=== PATIENT | female | born 1965 | race Hispanic/Latino ===

== ENCOUNTER 2022-01-09 03:18 | Observation (INO) | payer OTHER ==
[2022-01-09] VITALS (7 sets, daily range): BP systolic 130–170; BP diastolic 69–83
[~2022-01-09] VITALS: Ht 160 cm; Wt 99.8 kg
[2022-01-09 03:42] LABS: BASOPHILS # (AUTO) 0.1 (0.0-0.1); BASOPHILS % 0.6 % (0.0-1.0); EOSINOPHILS # (AUTO) 0.3 (0.0-0.4); EOSINOPHILS % 3.4 % (0.0-6.0); HEMATOCRIT 34.6 % (34.2-44.1); HEMOGLOBIN 10.7 g/dL (12.0-16.0); LYMPHOCYTES # (AUTO) 2.3 (1.0-3.2); LYMPHOCYTES % 28.4 % (18.0-39.1); MEAN CORPUSCULAR HEMOGLOBIN 27.1 pg (28-32); MEAN CORPUSCULAR HGB CONC 30.9 g/dL (31-35); MEAN CORPUSCULAR VOLUME 87.6 fL (81-99); MONOCYTES # (AUTO) 0.5 (0.2-0.8); MONOCYTES % 6.6 % (4.4-11.3); NEUTROPHILS # (AUTO) 4.9 (2.1-6.9); NEUTROPHILS % 60.5 % (38.7-80.0); PLATELET COUNT 357 x10e3/uL (140-360); RED BLOOD COUNT 3.95 x10e6/uL (3.6-5.1); RED CELL DISTRIBUTION WIDTH 13.7 % (11.7-14.4)
[2022-01-09 04:03] LABS: ALBUMIN 2.3 g/dL (3.5-5.0); ALBUMIN/GLOBULIN RATIO 0.5 (0.8-2.0); ANION GAP 12.7 mmol/L (8-16); CALCIUM 8.1 mg/dL (8.4-10.2); CREATININE, SERUM 2.67 mg/dL (0.57-1.11)
[2022-01-09 04:04] LABS: POTASSIUM 5.7 mmol/L (3.5-5.1)
[2022-01-09 04:09] LABS: CREATINE KINASE MB 1.6 ng/mL (0-5.0)
[2022-01-09] MEDS ORDERED: DEXTROSE 50% SYRINGE 50 ML IV STA (04:13)
[2022-01-09] MEDS ORDERED: CALCIUM GLUCONATE 10% INJ 0.465 MEQ/ML VIAL IV STA (04:13)
[2022-01-09] MEDS ORDERED: FUROSEMIDE INJ 10 MG/ML 4 ML VIAL IV STA (04:13)
[2022-01-09] MEDS ORDERED: INSULIN REGULAR, HUMAN 100 UNIT/1 ML IV STA (04:13)
[2022-01-09] MEDS ORDERED: SODIUM BICARBONATE 8.4% INJ 50 ML SYR IV STA (04:13)
[2022-01-09] MEDS ORDERED: SODIUM CHLORIDE FLUSH 10 ML SYR INJ PRN (04:15)
[2022-01-09] MEDS ORDERED: CALCIUM GLUC 1 G/50 ML NACL 50 ML IV STA (04:22)
[2022-01-09] MEDS ORDERED: ATORVASTATIN CA20 MG PO (06:07)
[2022-01-09] MEDS ORDERED: NIFEDIPINE ER30 M1 PO (06:08)
[2022-01-09] MEDS ORDERED: CARVEDILOL12.5 MG PO (06:09)
[2022-01-09] MEDS ORDERED: LISINOPRIL5 MG PO (06:09)
[2022-01-09] MEDS ORDERED: JANUVIA25 MG PO (06:10)
[2022-01-09 10:46] LABS: CREATINE KINASE 354 IU/L (29-168)
[2022-01-09] MEDS ORDERED: LACTULOSE SYRUP 20 GM/30 ML UDC PO ONE (11:15)
[2022-01-09] MEDS ORDERED: SOD POLYSTYRENE SULFONATE SUSP 15 GM/60 ML BTL PO ONE (11:15)
[2022-01-09] MEDS: SODIUM BICARBONATE 650 MG TAB PO SCH ×2 (15:06→21:30)
[2022-01-09 18:38] LABS: CREATINE KINASE 381 IU/L (29-168)
[2022-01-09] MEDS ORDERED: LEVEMIR FL100 UNIT/1 SC (21:50)
[2022-01-09] MEDS ORDERED: DEXTROSE 50% SYRINGE 50 ML IV PRN (22:00)
[2022-01-09] MEDS ORDERED: ACETAMINOPHEN 325 MG TAB PO PRN (22:00)
[2022-01-09] MEDS ORDERED: ATORVASTATIN 40 MG TAB PO SCH (22:00)
[2022-01-09] MEDS: LISINOPRIL 2.5 MG TAB PO SCH (23:05)
[2022-01-09] MEDS: CARVEDILOL 12.5 MG TAB PO SCH (23:05)
[2022-01-09] MEDS: NIFEDIPINE CR 30 MG TAB PO SCH (23:05)
[2022-01-09] MEDS: INSULIN REGULAR, HUMAN 100 UNIT/1 ML SQ SCH (23:06)
[2022-01-10] VITALS: BP 144/86
[2022-01-10 04:00] VITALS: BP 126/80
[2022-01-10 05:28] VITALS: BP 126/80
[2022-01-10 05:41] LABS: BASOPHILS # (AUTO) 0.1 (0.0-0.1); BASOPHILS % 0.8 % (0.0-1.0); EOSINOPHILS # (AUTO) 0.2 (0.0-0.4); EOSINOPHILS % 3.5 % (0.0-6.0); HEMATOCRIT 31.4 % (34.2-44.1); HEMOGLOBIN 9.6 g/dL (12.0-16.0); LYMPHOCYTES # (AUTO) 1.9 (1.0-3.2); LYMPHOCYTES % 31.6 % (18.0-39.1); MEAN CORPUSCULAR HEMOGLOBIN 26.8 pg (28-32); MEAN CORPUSCULAR HGB CONC 30.6 g/dL (31-35); MEAN CORPUSCULAR VOLUME 87.7 fL (81-99); MONOCYTES # (AUTO) 0.5 (0.2-0.8); MONOCYTES % 7.9 % (4.4-11.3); NEUTROPHILS # (AUTO) 3.3 (2.1-6.9); PLATELET COUNT 305 x10e3/uL (140-360); RED BLOOD COUNT 3.58 x10e6/uL (3.6-5.1); RED CELL DISTRIBUTION WIDTH 13.8 % (11.7-14.4)
[2022-01-10 07:08] LABS: ALBUMIN/GLOBULIN RATIO 0.6 (0.8-2.0); ANION GAP 13.1 mmol/L (8-16); CALCIUM 7.7 mg/dL (8.4-10.2); CREATININE, SERUM 2.29 mg/dL (0.57-1.11); POTASSIUM 5.1 mmol/L (3.5-5.1)
[2022-01-10] MEDS: INSULIN REGULAR, HUMAN 100 UNIT/1 ML SQ SCH ×2 (07:30→11:30)
[2022-01-10 08:00] VITALS: BP 151/77
[2022-01-10 08:14] VITALS: BP 151/77
[2022-01-10] MEDS: LISINOPRIL 2.5 MG TAB PO SCH (08:47)
[2022-01-10] MEDS: CARVEDILOL 12.5 MG TAB PO SCH (08:47)
[2022-01-10] MEDS: SODIUM BICARBONATE 650 MG TAB PO SCH ×2 (08:48→15:00)
[2022-01-10] MEDS: NIFEDIPINE CR 30 MG TAB PO SCH (08:48)
[2022-01-10] MEDS ORDERED: NON-FORMULARY MEDICATION (Sitagliptin Phosphate* (Januvia*) 25 MG) PO SCH (09:00)
[2022-01-10] MEDS ORDERED: FUROSEMIDE INJ 10 MG/ML 4 ML VIAL IV SCH (09:00)
[2022-01-10] MEDS ORDERED: SOD POLYSTYRENE SULFONATE SUSP 15 GM/60 ML BTL PO ONE (11:15)
[2022-01-10 12:46] VITALS: BP 107/71
[2022-01-10] MEDS ORDERED: SODIUM BICARBO650 MG PO (14:39)
[2022-01-10] MEDS ORDERED: INSULIN GLARGINE 100 UNITS/ML VIAL SC SCH (21:00)
== END 2022-01-10 15:50 | disposition home or self-care (01) ==
LOC: ER 03:22 → INTOOBSV 04:11 → ERHOLD 04:11 → MED/SURG2 05:23
DX: I13.0 Hypertensive heart and chronic kidney disease with heart failure and stage 1 through stage 4 chronic kidney disease, or unspecified chronic kidney disease (principal); I50.33 Acute on chronic diastolic (congestive) heart failure; E87.5 Hyperkalemia; E11.22 Type 2 diabetes mellitus with diabetic chronic kidney disease; N18.4 Chronic kidney disease, stage 4 (severe); E66.01 Morbid (severe) obesity due to excess calories; Z68.39 Body mass index [BMI] 39.0-39.9, adult; I25.10 Atherosclerotic heart disease of native coronary artery without angina pectoris; E87.2 Acidosis; N17.9 Acute kidney failure, unspecified; N25.89 Other disorders resulting from impaired renal tubular function; E78.5 Hyperlipidemia, unspecified
CPT/HCPCS: 36415; 71045; 71046; 76770; 80053; 82550; 82553; 82948; 83880; 84484; 84550; 85025; 85379; 93005; 93306; 94799; 99284; G0378; J1817; J1940; J7799; U0002

== ENCOUNTER 2022-02-23 13:14 | Inpatient (IN) | payer OTHER ==
[~2022-02-23] VITALS: Ht 157.5 cm; Wt 99.8 kg
[~2022-02-23 13:14] MED LIST: ATORVASTATIN CA20 MG PO; CARVEDILOL12.5 MG PO; JANUVIA25 MG PO; LEVEMIR FL100 UNIT/1 SC; LISINOPRIL5 MG PO; NIFEDIPINE ER30 M1 PO; SODIUM BICARBO650 MG PO
[2022-02-23 13:55] LABS: BASOPHILS # (AUTO) 0.1 (0.0-0.1); BASOPHILS % 0.7 % (0.0-1.0); EOSINOPHILS # (AUTO) 0.1 (0.0-0.4); HEMATOCRIT 35.4 % (34.2-44.1); HEMOGLOBIN 11.7 g/dL (12.0-16.0); LYMPHOCYTES # (AUTO) 0.9 (1.0-3.2); MEAN CORPUSCULAR HEMOGLOBIN 26.7 pg (28-32); MEAN CORPUSCULAR HGB CONC 33.1 g/dL (31-35); MEAN CORPUSCULAR VOLUME 80.8 fL (81-99); MONOCYTES # (AUTO) 0.4 (0.2-0.8); MONOCYTES % 4.1 % (4.4-11.3); NEUTROPHILS # (AUTO) 8.9 (2.1-6.9); NEUTROPHILS % 84.5 % (38.7-80.0); PLATELET COUNT 335 x10e3/uL (140-360); RED BLOOD COUNT 4.38 x10e6/uL (3.6-5.1); RED CELL DISTRIBUTION WIDTH 13.1 % (11.7-14.4)
[2022-02-23 14:11] LABS: ALBUMIN 2.5 g/dL (3.5-5.0); ALBUMIN/GLOBULIN RATIO 0.5 (0.8-2.0); ANION GAP 18.6 mmol/L (8-16); CALCIUM 8.1 mg/dL (8.4-10.2); CREATININE, SERUM 3.22 mg/dL (0.57-1.11); POTASSIUM 5.6 mmol/L (3.5-5.1)
[2022-02-23] MEDS ORDERED: DEXTROSE 50% SYRINGE 50 ML IV STA (14:54)
[2022-02-23] MEDS ORDERED: SOD POLYSTYRENE SULFONATE SUSP 15 GM/60 ML BTL PO ONE (15:00)
[2022-02-23] MEDS ORDERED: INSULIN REGULAR, HUMAN 100 UNIT/1 ML IV ONE (15:00)
[2022-02-23] MEDS ORDERED: CALCIUM GLUCONATE 10% INJ 13.95 MEQ in SODIUM CHLORIDE 0.9% 100 ML IV ONE (15:00)
[2022-02-23] MEDS ORDERED: SODIUM BICARBONATE 8.4% INJ 50 ML SYR IV ONE (15:00)
[2022-02-23] MEDS ORDERED: ALBUTEROL SULF 0.083% NEB SOLN 3 ML NEB NEB ONE (15:05)
[2022-02-23] MEDS ORDERED: ONDANSETRON HCL INJ 2MG/ML 2ML 2 MG/ML VIAL IV NR (15:30)
[2022-02-23] MEDS ORDERED: DEXTROSE 5% 1,000 ML IV ONE (15:30)
[2022-02-23] MEDS: SODIUM CHLORIDE 0.9% 1000ML 1,000 ML IV SCH ×2 (15:35→23:00)
[2022-02-23] MEDS ORDERED: SODIUM CHLORIDE 0.9% 100 ML ONE (15:41)
[2022-02-23] MEDS ORDERED: SODIUM BICARBONATE 8.4% 150 ML in DEXTROSE 5% 1,000 ML IV ONE (15:45)
[2022-02-23 16:24] VITALS: BP 159/84
[2022-02-23 16:30] VITALS: BP 159/84
[2022-02-23] MEDS ORDERED: DEXTROSE 50% SYRINGE 50 ML IV PRN (16:45)
[2022-02-23] MEDS: INSULIN LISPRO 100 UNIT/1 ML 3ML VIAL SQ SCH (20:13)
[2022-02-23] MEDS: ACETAMINOPHEN 325 MG TAB PO PRN (20:14)
[2022-02-23 20:35] VITALS: BP 156/84
[2022-02-23 20:39] VITALS: BP 156/84
[2022-02-24] VITALS (7 sets, daily range): BP systolic 147–182; BP diastolic 70–86
[2022-02-24] MEDS: SODIUM CHLORIDE 0.9% 1000ML 1,000 ML IV SCH ×3 (05:18→15:00)
[2022-02-24 05:41] LABS: BASOPHILS % 0.7 % (0.0-1.0); EOSINOPHILS % 0.7 % (0.0-6.0); HEMATOCRIT 30.4 % (34.2-44.1); LYMPHOCYTES # (AUTO) 1.7 (1.0-3.2); LYMPHOCYTES % 39.4 % (18.0-39.1); MEAN CORPUSCULAR HEMOGLOBIN 26.8 pg (28-32); MEAN CORPUSCULAR HGB CONC 32.9 g/dL (31-35); MEAN CORPUSCULAR VOLUME 81.5 fL (81-99); MONOCYTES # (AUTO) 0.4 (0.2-0.8); MONOCYTES % 10.1 % (4.4-11.3); NEUTROPHILS # (AUTO) 2.1 (2.1-6.9); NEUTROPHILS % 48.6 % (38.7-80.0); PLATELET COUNT 281 x10e3/uL (140-360); RED BLOOD COUNT 3.73 x10e6/uL (3.6-5.1); RED CELL DISTRIBUTION WIDTH 13.2 % (11.7-14.4)
[2022-02-24 06:03] LABS: ANION GAP 14.6 mmol/L (8-16); CALCIUM 7.7 mg/dL (8.4-10.2); CREATININE, SERUM 2.68 mg/dL (0.57-1.11); POTASSIUM 3.6 mmol/L (3.5-5.1)
[2022-02-24] MEDS: INSULIN LISPRO 100 UNIT/1 ML 3ML VIAL SQ SCH ×4 (07:30→20:19)
[2022-02-24] MEDS: PANTOPRAZOLE SOD 40 MG TABEC PO SCH (08:42)
[2022-02-24] MEDS: ACETAMINOPHEN 325 MG TAB PO PRN (20:39)
[2022-02-24] MEDS: ONDANSETRON HCL INJ 2MG/ML 2ML 2 MG/ML VIAL IV PRN (22:59)
[2022-02-25] VITALS (9 sets, daily range): BP systolic 131–190; BP diastolic 69–95
[2022-02-25] MEDS: SODIUM CHLORIDE 0.9% 1000ML 1,000 ML IV SCH (03:10)
[2022-02-25] MEDS: ACETAMINOPHEN 325 MG TAB PO PRN (06:01)
[2022-02-25 07:02] LABS: BASOPHILS % 0.4 % (0.0-1.0); EOSINOPHILS # (AUTO) 0.2 (0.0-0.4); EOSINOPHILS % 2.2 % (0.0-6.0); HEMATOCRIT 31.7 % (34.2-44.1); HEMOGLOBIN 10.3 g/dL (12.0-16.0); LYMPHOCYTES # (AUTO) 1.9 (1.0-3.2); LYMPHOCYTES % 27.6 % (18.0-39.1); MEAN CORPUSCULAR HEMOGLOBIN 26.8 pg (28-32); MEAN CORPUSCULAR HGB CONC 32.5 g/dL (31-35); MEAN CORPUSCULAR VOLUME 82.6 fL (81-99); MONOCYTES # (AUTO) 0.8 (0.2-0.8); MONOCYTES % 11.7 % (4.4-11.3); NEUTROPHILS # (AUTO) 3.9 (2.1-6.9); NEUTROPHILS % 57.8 % (38.7-80.0); PLATELET COUNT 297 x10e3/uL (140-360); RED BLOOD COUNT 3.84 x10e6/uL (3.6-5.1); RED CELL DISTRIBUTION WIDTH 13.2 % (11.7-14.4)
[2022-02-25 07:11] LABS: ANION GAP 13.9 mmol/L (8-16); CALCIUM 8.2 mg/dL (8.4-10.2); CREATININE, SERUM 2.45 mg/dL (0.57-1.11); POTASSIUM 3.9 mmol/L (3.5-5.1)
[2022-02-25] MEDS: PANTOPRAZOLE SOD 40 MG TABEC PO SCH (08:22)
[2022-02-25] MEDS: NIFEDIPINE CR 30 MG TAB PO SCH (08:26)
[2022-02-25] MEDS: INSULIN LISPRO 100 UNIT/1 ML 3ML VIAL SQ SCH ×4 (08:28→20:56)
[2022-02-25] MEDS: CARVEDILOL 12.5 MG TAB PO SCH ×2 (11:02→16:37)
[2022-02-25] MEDS: TRAMADOL HCL 50 MG TAB PO PRN (13:39)
[2022-02-25] MEDS ORDERED: CARVEDILOL 12.5 MG TAB PO SCH (17:00)
[2022-02-25] MEDS: ONDANSETRON HCL INJ 2MG/ML 2ML 2 MG/ML VIAL IV PRN (17:30)
[2022-02-25] MEDS: ATORVASTATIN 40 MG TAB PO SCH (20:52)
[2022-02-26] VITALS (10 sets, daily range): BP systolic 129–182; BP diastolic 66–86
[2022-02-26 07:21] LABS: BASOPHILS % 0.4 % (0.0-1.0); EOSINOPHILS # (AUTO) 0.2 (0.0-0.4); EOSINOPHILS % 2.4 % (0.0-6.0); HEMATOCRIT 31.6 % (34.2-44.1); HEMOGLOBIN 10.1 g/dL (12.0-16.0); LYMPHOCYTES # (AUTO) 2.1 (1.0-3.2); LYMPHOCYTES % 31.5 % (18.0-39.1); MEAN CORPUSCULAR HEMOGLOBIN 26.8 pg (28-32); MEAN CORPUSCULAR VOLUME 83.8 fL (81-99); MONOCYTES # (AUTO) 0.7 (0.2-0.8); NEUTROPHILS # (AUTO) 3.7 (2.1-6.9); NEUTROPHILS % 55.4 % (38.7-80.0); PLATELET COUNT 290 x10e3/uL (140-360); RED BLOOD COUNT 3.77 x10e6/uL (3.6-5.1); RED CELL DISTRIBUTION WIDTH 13.1 % (11.7-14.4)
[2022-02-26 07:55] LABS: ALBUMIN 1.9 g/dL (3.5-5.0); ALBUMIN/GLOBULIN RATIO 0.5 (0.8-2.0); ANION GAP 12.5 mmol/L (8-16); CALCIUM 7.4 mg/dL (8.4-10.2); CREATININE, SERUM 3.16 mg/dL (0.57-1.11); POTASSIUM 4.5 mmol/L (3.5-5.1)
[2022-02-26] MEDS: PANTOPRAZOLE SOD 40 MG TABEC PO SCH (08:19)
[2022-02-26] MEDS: CARVEDILOL 12.5 MG TAB PO SCH ×2 (08:20→16:25)
[2022-02-26] MEDS: INSULIN LISPRO 100 UNIT/1 ML 3ML VIAL SQ SCH ×4 (08:20→21:06)
[2022-02-26] MEDS: FUROSEMIDE 40 MG TAB PO SCH (08:20)
[2022-02-26] MEDS: NIFEDIPINE CR 30 MG TAB PO SCH (08:21)
[2022-02-26 09:43] LABS: CREATININE,URINE RANDOM 77.48 mg/dL (47-110)
[2022-02-26] MEDS: HYDRALAZINE HCL 20 MG/ML VIAL IV PRN (12:04)
[2022-02-26] MEDS ORDERED: DEXTROSE 50% SYRINGE 50 ML IV PRN (15:45)
[2022-02-26] MEDS: ATORVASTATIN 40 MG TAB PO SCH (20:56)
[2022-02-26] MEDS: ACETAMINOPHEN 325 MG TAB PO PRN (21:07)
[2022-02-27] VITALS (8 sets, daily range): BP systolic 129–176; BP diastolic 16–87
[2022-02-27] MEDS: CARVEDILOL 12.5 MG TAB PO SCH ×2 (09:00→17:18)
[2022-02-27] MEDS: PANTOPRAZOLE SOD 40 MG TABEC PO SCH (09:01)
[2022-02-27] MEDS: NIFEDIPINE CR 30 MG TAB PO SCH (09:01)
[2022-02-27] MEDS: FUROSEMIDE 40 MG TAB PO SCH (09:01)
[2022-02-27] MEDS: TRAMADOL HCL 50 MG TAB PO PRN ×2 (09:03→11:30)
[2022-02-27] MEDS: HYDRALAZINE HCL 20 MG/ML VIAL IV PRN (09:05)
[2022-02-27] MEDS: INSULIN LISPRO 100 UNIT/1 ML 3ML VIAL SQ SCH ×4 (09:17→20:23)
[2022-02-27] MEDS: INSULIN GLARGINE 100 UNITS/ML VIAL SQ SCH (09:20)
[2022-02-27] MEDS: SODIUM CHLORIDE 0.9% 1000ML 1,000 ML IV SCH ×2 (12:19→20:01)
[2022-02-27] MEDS: ATORVASTATIN 40 MG TAB PO SCH (20:18)
[2022-02-28] MEDS: ACETAMINOPHEN 325 MG TAB PO PRN (01:29)
[2022-02-28 04:00] VITALS: BP 173/72
[2022-02-28] MEDS: SODIUM CHLORIDE 0.9% 1000ML 1,000 ML IV SCH (05:30)
[2022-02-28 07:12] LABS: ALBUMIN 1.9 g/dL (3.5-5.0); ALBUMIN/GLOBULIN RATIO 0.5 (0.8-2.0); ANION GAP 11.2 mmol/L (8-16); CALCIUM 7.6 mg/dL (8.4-10.2); CREATININE, SERUM 3.1 mg/dL (0.57-1.11); POTASSIUM 4.2 mmol/L (3.5-5.1)
[2022-02-28 08:11] VITALS: BP 187/86
[2022-02-28] MEDS: PANTOPRAZOLE SOD 40 MG TABEC PO SCH (08:17)
[2022-02-28] MEDS: HYDRALAZINE HCL 20 MG/ML VIAL IV PRN (08:18)
[2022-02-28 08:38] VITALS: BP 187/90
[2022-02-28] MEDS: INSULIN LISPRO 100 UNIT/1 ML 3ML VIAL SQ SCH ×2 (09:46→13:00)
[2022-02-28] MEDS: NIFEDIPINE CR 30 MG TAB PO SCH (09:47)
[2022-02-28] MEDS: CARVEDILOL 12.5 MG TAB PO SCH (09:48)
[2022-02-28] MEDS: FUROSEMIDE 40 MG TAB PO SCH (09:49)
[2022-02-28] MEDS: INSULIN GLARGINE 100 UNITS/ML VIAL SQ SCH (11:15)
[2022-02-28 11:48] VITALS: BP 150/74
[2022-02-28] MEDS ORDERED: SODIUM CHLORIDE 0.45% 1,000 ML IV SCH (12:30)
[2022-02-28] MEDS ORDERED: LEVEMIR FL100 UNIT/1 SC (12:30)
[2022-02-28] MEDS ORDERED: NIFEDIPINE CR 30 MG TAB PO ONE (12:30)
[2022-02-28] MEDS ORDERED: NIFEDIPINE CR 30 MG TAB PO SCH (17:00)
== END 2022-02-28 14:15 | disposition home or self-care (01) | DRG 641 ==
LOC: ER 13:22 → ERHOLD 15:00 → MED/SURG3 16:01
PROVIDERS: ADMIT Internal Medicine; ATTEND Internal Medicine
DX: E87.5 Hyperkalemia (principal); N17.9 Acute kidney failure, unspecified; E11.22 Type 2 diabetes mellitus with diabetic chronic kidney disease; I12.9 Hypertensive chronic kidney disease with stage 1 through stage 4 chronic kidney disease, or unspecified chronic kidney disease; Z79.899 Other long term (current) drug therapy; E78.49 Other hyperlipidemia; R60.0 Localized edema; N18.32 Chronic kidney disease, stage 3b; Z20.822 Contact with and (suspected) exposure to COVID-19
CPT/HCPCS: 36415; 70450; 76770; 80048; 80053; 82570; 82948; 83516; 83690; 84156; 84165; 85025; 86021; 86160; 86225; 86235; 86255; 86256; 86376; 86431; 93005; 94640; 94799; 99284; J0360; J0610; J1815; J1817; J2405; J7030; J7050; J7070; J7799

== ENCOUNTER 2022-03-26 16:41 | Emergency (ER) | payer OTHER ==
[~2022-03-26] VITALS: Ht 157.5 cm; Wt 99.8 kg
[2022-03-26] MEDS ORDERED: CLEOCIN HCL300 MG PO (17:28)
[2022-03-26] MEDS ORDERED: MUPIROCIN22 GM TOP (17:31)
== END 2022-03-26 17:36 | disposition home or self-care (01) ==
LOC: ER 17:15
DX: L03.312 Cellulitis of back [any part except buttock and flank] (principal); L03.116 Cellulitis of left lower limb; L03.115 Cellulitis of right lower limb; I10 Essential (primary) hypertension; E11.9 Type 2 diabetes mellitus without complications; E78.5 Hyperlipidemia, unspecified
CPT/HCPCS: 99282

== ENCOUNTER 2024-08-07 14:04 | Emergency (ER) | payer OTHER ==
[~2024-08-07] VITALS: Ht 157.5 cm; Wt 92.1 kg
[~2024-08-07 14:04] MED LIST changes: +BUMETANIDE1 MG PO; +CLEOCIN HCL300 MG PO; +COREG12.5 MG PO; +FEROSUL325 MG PO; +FUROSEMIDE40 MG PO; +LOSARTAN POTASS25 MG PO; +MECLIZINE HCL12.5 MG PO; +MUPIROCIN22 GM TOP; +RENVELA0.8 GM PO; +RENVELA800 MG PO; +SEVELAMER CARB800 MG PO; +VELTASSA16.8 GM PO
[2024-08-07 14:11] VITALS: PULSE 74; RESP 18; TEMP 98.4; O2SAT 99
[2024-08-07] MEDS ORDERED: DOXYCYCLINE HY100 MG PO (14:51)
== END 2024-08-07 15:07 | disposition home or self-care (01) ==
LOC: ER 14:18
DX: D22.39 Melanocytic nevi of other parts of face (principal); I12.9 Hypertensive chronic kidney disease with stage 1 through stage 4 chronic kidney disease, or unspecified chronic kidney disease; N18.9 Chronic kidney disease, unspecified; Z99.2 Dependence on renal dialysis
CPT/HCPCS: 99283

== ENCOUNTER → 2024-09-03 | Day surgery (SDC) | payer OTHER ==
[~2024-09-03] MED LIST changes: +ACETAMINOPHEN 1000 MG/100 ML 100 ML IV ONE; +DOXYCYCLINE HY100 MG PO; +FENTANYL CITRATE/PF 100MCG/2 ML INJ ONE; +LIDOCAINE HCL 2% LOCAL INJ 5 ML SDV VIAL INJ ONE; +MIDAZOLAM HCL 2 MG/2 ML VIAL ONE; +ONDANSETRON HCL 4 MG ORAL DISINTEGRATING TAB ONE; +ONDANSETRON HCL INJ 2MG/ML 2ML 2 MG/ML VIAL ONE; +OZEMPIC0.25 MG/02 SC; +PROPOFOL IV EMULSION 10 MG/ML 20 ML VIAL ONE
[2024-09-03] MEDS: SODIUM CHLORIDE 0.9% 500ML 500 ML ONE (09:05)
[2024-09-03 09:27] LABS: BASOPHILS # (AUTO) 0.1 (0.0-0.1); BASOPHILS % 0.9 % (0.0-1.0); EOSINOPHILS # (AUTO) 0.2 (0.0-0.4); EOSINOPHILS % 2.1 % (0.0-6.0); HEMATOCRIT 37.6 % (34.2-44.1); HEMOGLOBIN 12.2 g/dL (12.0-16.0); LYMPHOCYTES # (AUTO) 1.8 (1.0-3.2); LYMPHOCYTES % 23.1 % (18.0-39.1); MEAN CORPUSCULAR HEMOGLOBIN 28.2 pg (28-32); MEAN CORPUSCULAR HGB CONC 32.4 g/dL (31-35); MEAN CORPUSCULAR VOLUME 86.8 fL (81-99); MONOCYTES # (AUTO) 0.6 (0.2-0.8); MONOCYTES % 7.6 % (4.4-11.3); NEUTROPHILS # (AUTO) 5.2 (2.1-6.9); NEUTROPHILS % 65.8 % (38.7-80.0); PLATELET COUNT 211 x10e3/uL (140-360); RED BLOOD COUNT 4.33 x10e6/uL (3.6-5.1); RED CELL DISTRIBUTION WIDTH 14.6 % (11.7-14.4); WHITE BLOOD COUNT 7.92 x10e3/uL (4.8-10.8)
[2024-09-03 10:19] LABS: INR 0.98; PROTHROMBIN TIME 13.6 seconds (11.9-14.5)
[2024-09-03 11:03] LABS: ALBUMIN 2.4 g/dL (3.5-5.0); ALBUMIN/GLOBULIN RATIO 0.6 (0.8-2.0); ANION GAP 17.9 mmol/L (8-16); BILIRUBIN,TOTAL 0.4 mg/dL (0.2-1.2); CALCIUM 8.3 mg/dL (8.4-10.2); CREATININE, SERUM 10.47 mg/dL (0.57-1.11); POTASSIUM 4.9 mmol/L (3.5-5.1); TOTAL PROTEIN 6.1 g/dL (6.5-8.1)
[2024-09-03 13:10] VITALS: TEMP 98.8
[2024-09-03] MEDS: HYDROCODONE/APAP 7.5MG-325MG 1 EA TAB ONE (14:00)
[2024-09-03] MEDS: ONDANSETRON HCL 4 MG ORAL DISINTEGRATING TAB PO ONE (14:25)
[2024-09-03 14:35] VITALS: BP 165/85; PULSE 65; RESP 16; O2SAT 94
== END | disposition home or self-care (01) ==
LOC: OR 07:27
PROVIDERS: ATTEND Surgery
DX: L98.499 Non-pressure chronic ulcer of skin of other sites with unspecified severity (principal); D18.01 Hemangioma of skin and subcutaneous tissue; D64.9 Anemia, unspecified; E11.9 Type 2 diabetes mellitus without complications; I10 Essential (primary) hypertension; E78.5 Hyperlipidemia, unspecified; R42 Dizziness and giddiness; E66.01 Morbid (severe) obesity due to excess calories; F41.9 Anxiety disorder, unspecified; Z94.0 Kidney transplant status; Z79.4 Long term (current) use of insulin; Z79.85 Long-term (current) use of injectable non-insulin antidiabetic drugs; Z79.899 Other long term (current) drug therapy; Z68.41 Body mass index [BMI] 40.0-44.9, adult
CPT/HCPCS: 21012; 36415; 80053; 85025; 85610; 85730; 88305; 93005; J0131; J2003; J2405; J2704; J3010; J7040; Q0162; 88309; J2250